=== PATIENT | female | born 1975 | race Caucasian/White ===

== ENCOUNTER → 2023-07-08 19:02 | Outpatient (REF) | payer BC, SELFPAY | LOC: WDC 19:02 | PROVIDERS: ATTENDING PHYSICIAN Nurse Practitioner | DX: Z12.31 Encounter for screening mammogram for malignant neoplasm of breast (principal) | CPT/HCPCS: 77063; 77067 ==

== ENCOUNTER → 2023-07-14 09:40 | Outpatient (REF) | payer BC, SELFPAY | LOC: WDC 09:40 | PROVIDERS: ATTENDING PHYSICIAN Nurse Practitioner | DX: R92.8 Other abnormal and inconclusive findings on diagnostic imaging of breast (principal) | CPT/HCPCS: 76642 ==

== ENCOUNTER → 2023-10-25 08:02 | Outpatient (REF) | payer BC, SELFPAY | LOC: RCS 08:02 | PROVIDERS: ATTENDING PHYSICIAN Nurse Practitioner | DX: R07.89 Other chest pain (principal) | CPT/HCPCS: 93017; 93350 ==

== ENCOUNTER → 2024-03-23 10:31 | Outpatient (REF) | payer BC, SELFPAY | LOC: HWRAD 10:31 | PROVIDERS: ATTENDING PHYSICIAN Nurse Practitioner Family; FAMILY PHYSICIAN Internal Medicine | DX: N93.9 Abnormal uterine and vaginal bleeding, unspecified (principal) | CPT/HCPCS: 76856 ==

== ENCOUNTER 2024-04-20 06:11 | Day surgery (SDC) | payer BC, SELFPAY ==
[2024-04-17 13:05] VITALS: BMI 26.6
[2024-04-20] VITALS (8 sets, daily range): BP systolic 119–133; BP diastolic 55–76; BMI 26.6
[2024-04-20] MEDS: TYLENOL 1000 MG PO (07:49)
[2024-04-20] MEDS: NORMOSOL-R/PLASMALYTE-A 1000 IV (08:05)
== END 2024-04-20 10:40 | disposition home or self-care (01) ==
LOC: SDS 06:11
PROVIDERS: ATTENDING PHYSICIAN Obstetrics & Gynecology; FAMILY PHYSICIAN Internal Medicine
DX: N92.0 Excessive and frequent menstruation with regular cycle (principal); E07.9 Disorder of thyroid, unspecified; E78.00 Pure hypercholesterolemia, unspecified; F41.9 Anxiety disorder, unspecified; F32.A Depression, unspecified; B00.1 Herpesviral vesicular dermatitis; G43.909 Migraine, unspecified, not intractable, without status migrainosus; Z88.0 Allergy status to penicillin
CPT/HCPCS: 58558; 88305; 36415; 93005

== ENCOUNTER 2024-07-04 06:04 | Day surgery (SDC) | payer BC, SELFPAY ==
[2024-06-29 11:32] LABS: % Basophils 0.9 % (0-2); % Eosinophils 2.2 % (0-6); % Lymphocytes 28.3 % (20.5-51.1); % Monocytes 8.6 % (1.7-9.3); Absolute Eosinophils 0.1 10^3/uL (0-0.7); Absolute Lymphocytes 1.3 10^3/uL (1.2-3.4); Absolute Monocytes 0.4 10^3/uL (0.1-0.6); Absolute Neutrophils 2.8 10^3/uL (1.4-6.5); Hematocrit 36.2 % (37.0-47.0); Hemoglobin 11.8 g/dL (12.0-16.0); Mean Corp Hgb Conc. 32.6 g/dL (33.0-37.0); Mean Corpuscular Hgb 28.8 pg (27.0-31.0); Mean Corpuscular Volume 88.3 fL (81.0-99.0); Mean Platelet Volume 10.1 fL (7.4-10.4); Nucleated Red Blood Cells % 0 %; Platelet Count 290 10^3/uL (130-400); Red Cell Dist. Width 15.8 % (11.5-14.5); White Blood Cell Count 4.6 10^3/uL (4.8-10.8)
[2024-06-29 12:29] LABS: ALT (SGPT) 13 U/L (0-35); AST (SGOT) 19 U/L (14-36); Albumin 4.2 g/dl (3.5-5.0); Alkaline Phosphatase 78 U/L (38-126); Blood Urea Nitrogen 16 mg/dl (7-17); Carbon Dioxide 26 mmol/L (22-30); Chloride 107 mmol/L (98-107); Glucose 84 mg/dl (70-99); Potassium 4.6 mmol/L (3.5-5.1); Sodium 142 mmol/L (135-145); Total Bilirubin 0.4 mg/dl (0.2-1.3); Total Protein 6.7 g/dl (6.3-8.2); eGFR > 60.00
[2024-06-29 12:43] LABS: Beta HCG Quantitative < 2.39 mIU/ml
[2024-06-29 12:44] VITALS: BMI 23.6
[2024-07-04] VITALS (16 sets, daily range): BP systolic 103–139; BP diastolic 47–85; BMI 23.6
[2024-07-04] MEDS: TYLENOL 1000 MG PO (06:27)
[2024-07-04] MEDS: NEURONTIN 300 MG PO (06:27)
[2024-07-04] MEDS: HEPARIN 5000 UNITS SC (06:29)
[2024-07-04] MEDS: NORMOSOL-R/PLASMALYTE-A 1000 IV (06:32)
--- NOTE | 2024-07-04 09:31 | W.IMMPOSTOP ---
Surgical Immed Post Op Note
-
Primary Surgeon: Miriam White DO
Pier Master: ROMMEL Greco
Pre-op Diagnosis: Menorrhagia, suspected adenomyosis
Post-op Diagnosis:same; endometriosis
Procedure Performed: RA TLH B/L salpingectomy, fulgeration endometriosis
Anesthesia Type: general ET Dr. Guzman
Specimen / Cultures: Uterus, cervix, bilateral fallopian tubes
Estimated Blood Loss: 5ml
Urine output: 200ml clear yellow urine
Complications: none
Operative Findings: Enlarged uterus approx 12 cm size, globular morphology suspicious for adenomyosis. Normal appearing tubes and ovaries b/l. superficial endometriosis implant noted on broad ligament on right side anterior surface inferior to
right fallopian tube.
Counts: correct times 2.
Stable to recovery.
[2024-07-04] MEDS: TORADOL 30 MG IV (09:51)
[2024-07-04] MEDS: DILAUDID 0.5 MG IV (10:44)
[2024-07-04] MEDS: DILAUDID 0.25 MG IV (11:09)
== END 2024-07-04 12:54 | disposition home or self-care (01) ==
LOC: SDS 06:04
PROVIDERS: ATTENDING PHYSICIAN Obstetrics & Gynecology; FAMILY PHYSICIAN Internal Medicine
DX: D25.9 Leiomyoma of uterus, unspecified (principal); N80.03 Adenomyosis of the uterus; N80.203 Endometriosis of bilateral fallopian tubes, unspecified depth; N94.6 Dysmenorrhea, unspecified; N92.0 Excessive and frequent menstruation with regular cycle
CPT/HCPCS: 58571; 88307; 36415; 80053; 84702; 85025; 86850; 86900; 86901; 88341; 88342; 93005

== ENCOUNTER 2024-07-14 12:52 | Emergency (ER) | payer BC, SELFPAY ==
[2024-07-14 12:57] VITALS: BP 132/66
[2024-07-14 13:13] LABS: % Immature Granulocytes 0.2 % (0-0.5); % Lymphocytes 18.4 % (20.5-51.1); % Monocytes 6.8 % (1.7-9.3); % Neutrophils 72.6 % (42.2-75.2); Absolute Basophils 0.1 10^3/uL (0-0.2); Absolute Eosinophils 0.1 10^3/uL (0-0.7); Absolute Lymphocytes 1.1 10^3/uL (1.2-3.4); Absolute Monocytes 0.4 10^3/uL (0.1-0.6); Absolute Neutrophils 4.5 10^3/uL (1.4-6.5); Mean Corp Hgb Conc. 33.3 g/dL (33.0-37.0); Mean Platelet Volume 8.8 fL (7.4-10.4); Nucleated Red Blood Cells % 0 %; Platelet Count 365 10^3/uL (130-400); Red Blood Cell Count 4.14 10^6/uL (4.20-5.40); Red Cell Dist. Width 14.2 % (11.5-14.5); White Blood Cell Count 6.2 10^3/uL (4.8-10.8)
[2024-07-14 13:27] LABS: ALT (SGPT) 17 U/L (0-35); AST (SGOT) 19 U/L (14-36); Albumin 4.7 g/dl (3.5-5.0); Alkaline Phosphatase 76 U/L (38-126); Blood Urea Nitrogen 11 mg/dl (7-17); Calcium 9.5 mg/dl (8.4-10.2); Carbon Dioxide 26 mmol/L (22-30); Chloride 104 mmol/L (98-107); Glucose 96 mg/dl (70-99); Lipase 38 U/L (23-300); Potassium 4.2 mmol/L (3.5-5.1); Sodium 140 mmol/L (135-145); Total Bilirubin 0.8 mg/dl (0.2-1.3); Total Protein 7.2 g/dl (6.3-8.2); eGFR > 60.00
[2024-07-14 14:09] VITALS: BMI 27.1
[2024-07-14 14:10] VITALS: BP 123/69
--- NOTE | 2024-07-14 14:16 | ED.GENMED ---
History of Present Illness
General
Chief Complaint: Abdominal Pain
Source: patient
Exam Limitations: none
Time Seen by Provider: 07/14/24 14:13
Nursing documentation reviewed up to this point in time: agreed with
History of Present Illness
History of Present Illness:
Patient is a 48-year-old female currently 9 days postop from robotic hysterectomy who presents to the emergency department for evaluation of left sided abdominal pain and loose stools. Patient reports abdominal pain over the past few days, worse
with movement. She also reports a few episodes of non-bloody diarrhea. Subjective fevers at home. No vomiting. No dysuria. No chest pain or shortness of breath.
Patient seen by [employer] earlier this morning and referred to emergency department for further evaluation/imaging given concern for intra-abdominal infection.
Patient states hysterectomy was uncomplicated. She has been recovering well at home. She has been taking 600 mg ibuprofen without improvement in symptoms.
She does have remote hx of kidney stones although states this pain feels different. No hx of abnormal colonoscopies
Past History
Past History
ED Past Medical History: Hypothyroidism
ED Past Surgical History: (12/05/12)
Social History
Tobacco: Non-smoker
Drug: None
Personal:
Living: with family
Employment: Employed (No history of subarachnoid hemorrhage)
Family History
Family History: Early CAD
Review of Systems
Review of Systems
Allergies reviewed?: Yes
All Other Systems: ROS reviewed and negative except as documented in HPI and ROS
Phy Exam
Physical Exam
Physical Exam:
Vitals: Patient's vital signs are stable. Afebrile
General: Patient is well appearing, no acute distress. Nontoxic appearing
Skin: Warm and dry, no rashes or lesions
Head: Normocephalic, atraumatic
Eyes: Sclera nonicteric.
Throat: Protecting airway
Neck: Normal ROM, no cervical spine tenderness, no meningismus
Cardiac: Regular rate and rhythm, no murmurs.
Pulm: Normal respiratory effort, no wheezes, rales, rhonchi heard on exam.
Abdomen: Well healing robotic incision sites without drainage or surrounding erythema or warmth. Abdomen soft w/ mild-mod tenderness in left mid abdomen/LLQ. No rebound tenderness of guarding. No CVA tenderness.
Extremities: No evidence of cyanosis or edema
Neuro: AAOx3. Grossly intact.
Psychiatric: Normal affect.
Course
Orders/Labs/Results
Orders:
Orders
07/14/24 13:05
Complete Blood Count/With Diff Urgent
Comprehensive Metabolic Panel Urgent
Lipase Urgent
07/14/24 14:26
0.9% Sodium Chloride 1000 ml [Nss] 1,000 ml IV BOLUS
Ketorolac [Toradol] 15 mg IV NOW STA
Ondansetron Injectable [Zofran] 4 mg IV NOW STA
07/14/24 14:28
Abdomen/Pelvis w Contrast CT [CT Abd/pelvis W Iv Cont] Urgent
Comment: recent hysterectomy
Reason For Exam: Left abdominal pain
07/14/24 15:36
Urinalysis Reflex To Culture Urgent
Date Specimen was Collected: 07/14/24
Time Specimen was Collected: 15:35
07/14/24 17:43
Amoxicillin 875 mg/Clav 125 mg [Augmentin 875 mg/125 mg] 1 tablet PO NOW STA
Abnormal Lab Results
07/14/24
13:05
RBC 4.14 L 10^6/uL
(4.20-5.40)
Hct 36.0 L %
(37.0-47.0)
Absolute Lymphs (auto) 1.1 L 10^3/uL
(1.2-3.4)
Lymphocytes % 18.4 L %
(20.5-51.1)
07/14/24 13:05
07/14/24 13:05
Vital Signs
Initial and Last Documented VS:
Initial Vital Signs
Temp Pulse Resp BP Pulse Ox
98.3 F 78 16 132/66 98
07/14/24 12:57 07/14/24 12:57 07/14/24 12:57 07/14/24 12:57 07/14/24 12:57
Last Documented Vital Signs
Temp Pulse Resp BP Pulse Ox
98.3 F 57 18 132/98 100
07/14/24 12:57 07/14/24 14:10 07/14/24 14:10 07/14/24 18:00 07/14/24 14:10
MDM/Problems Addressed
Differential Diagnosis Includes:
Not limited to: colitis, diverticulitis, intra-abdominal abscess, pyelonephritis, ureterolithiasis, etc
MDM/Problems Addressed:
48-year-old female with history as document w/ recent robotic hysterectomy presenting with left sided abdominal pain and loose stools over the past few days. Symptoms worse with movement. Subjective fevers at home. No vomiting or dysuria. Vitals
stable. Patient afebrile. Physical exam as above. Patient well appearing, in no apparent distress. She is nontoxic appearing. Patient has well healing surgical incisions without surrounding cellulitis. Abdomen soft with tenderness in left lower
quadrant. No rebound tenderness or guarding. Labs obtained in triage without clinically significant abnormalities. Given recent abdominal surgery � concern for postoperative complication vs colitis vs diverticulitis. Will check CT scan, give IV
fluids and Toradol. Will collect stool studies.
Update: Urine without evidence of infection. CT scan shows finding suggestive of colitis. No evidence of intra-abdominal abscess or other postoperative complication. This could be inflammtory colitis. Lower suspicion for acute diverticulitis.
However � given pain and history of possible fever at home will cover patient with Augmentin. She says she has had this medication in the past and had never had an allergic reaction. She would prefer this over Cipro/Flagyl. Patient unable to provide
stool sample today. Advised follow up with PCP for stool studies if symptoms persist. Patient overall well appearing and nontoxic. Her pain is well controlled after toradol. Do not feel IV abx or admission indicated. Discussed with [employer] on-call
who agrees with plan. Advised f/u with GI outpatient. Patient stable for discharge home. Return precautions discussed.
Chronic conditions affecting care:
N/A
Acute Exacerbation and/or Progression of Chronic Illness:
N/A
*Radiology
Radiology exam reviewed: radiology read reviewed
*Pulse Oximetry
Patient hypoxic: no
*EKG
Interpreted by ED Provider?: NA
*Assistant Professor Of Art Interpretation
Rate: Assistant Professor Of Art- N/A
*Critical Care Note
Total Time (30-74mins, 75-104mins- exclusive of procedures): Not Applicable
Patient Management
Discussion with other providers: Cable Assembler (Case discussed with [employer]-Dr. White)
Escalation/DeEscalation of care consider admission/obs:
Admit not indicated
ED Attending Note
-
Portions of this chart may have been created with voice recognition software.� Occasional wrong word or��sound alike� substitutions may have occurred due to the inherent limitations of voice recognition software.
Discharge Plan
Departure
Patient Disposition: Home (Routine Discharge)
Date of Disposition: 07/14/24
Time of Disposition: 17:44
Patient with high blood pressure during this ER visit?: No
Condition: Good
Covid-19: Not Applicable
Discharge Problem:
Colitis
Instructions: Clear Liquid Diet, Colitis - Discharge instructions, Abdominal pain in adults - ED discharge instructions
Prescriptions:
New
amoxicillin-pot clavulanate 875-125 mg tablet
1 tab PO BID 10 Days Qty: 20 0RF
No Action
rizatriptan 10 mg Tablet
10 mg PO Q2H PRN (Reason: migraines)
kvuwdqwwub-likksgutocwuu-jtmd [Fioricet] 50-325-40 mg Tablet
1 tab PO Q4H PRN (Reason: migraines)
lorazepam 0.5 mg Tablet
0.5 mg PO BID PRN (Reason: anxiety)
ibuprofen 200 mg Tablet
600 mg PO Q6H PRN (Reason: pain)
tranexamic acid [Lysteda] 650 mg Tablet
1,300 mg PO TID PRN (Reason: heavy menstral cycles)
Rx Instructions:
for up to 5 days for heavy menstral cycles
ferrous sulfate [Iron (ferrous sulfate)] 325 mg (65 mg iron) Tablet
325 mg PO .3 TIMES/WEEK
oxycodone 5 mg tablet
5 mg PO Q6H PRN (Reason: severe pain) Qty: 12 0RF
Rx Instructions:
Half tab or 1 tab PO Q 6hr prn severe pain
Referrals:
Marlon Dominguez MD [Active] - Call in 1-3 days for appt
Miriam White DO [Active] - Keep scheduled appt
Kimberlee Bernal MD [Family Provider] -
Activity Restrictions/Additional Instructions:
RETURN TO THE EMERGENCY DEPARTMENT WITH FEVERS, CHILLS, PERSISTENT/WORSENING ABDOMINAL PAIN, INTRACTABLE DIARRHEA OR SIGNS SEVERE DEHYDRATION, OR ANY OTHER CONCERNS
- As discussed�your CT scan showed findings of a colitis today. You were unable to give a stool sample in the emergency department. If diarrhea persist�you should follow-up with primary care to obtain stool samples.
- A prescription for antibiotic has been sent to your pharmacy. You should take this twice a day for the next 10 days. If you develop any signs of reaction please stop medication immediately.
- I would recommend a clear liquid diet over the next few days and advance to low fiber. You can take Tylenol and/or Motrin as needed for pain. Stay well-hydrated.
- Follow-up with GI for further evaluation/management as this may require further testing.
Monitor your symptoms closely and return to the emergency department with any acute worsening/new symptoms or any other concerns
Interventions
Interventions:
*Risk Screen - Suicide Last Done: 07/14/24 12:57
*General Assessment Last Done: 07/14/24 14:05
*Neglect/Abuse Screening Last Done: 07/14/24 12:57
*ED- Fall Risk Assessment Last Done: 07/14/24 14:05
*ED COVID-19 Vaccine History Last Done: 07/14/24 14:05
*Nursing Disposition Last Done: 07/14/24 18:21
TL-Qtbrcw-Yufultrqyh Assessment Last Done: 07/14/24 14:05
ED-Skin Assessment Last Done: 07/14/24 14:05
Discharge Date and Time
Discharge Date/Time: 07/14/24 18:22
Print Language: KOREAN
[2024-07-14] MEDS: NSS 1000 IV (14:33)
[2024-07-14] MEDS: ZOFRAN 4 MG IV (14:38)
[2024-07-14] MEDS: TORADOL 15 MG IV (14:38)
[2024-07-14 15:00] VITALS: BP 119/49
[2024-07-14 15:44] LABS: Urine Albumin Negative (Neg - Trace); Urine Bilirubin Negative (Negative); Urine Character Clear (Clear); Urine Color Yellow; Urine Glucose Negative (Negative); Urine Ketone Negative (Negative); Urine Leukocyte Negative (Negative); Urine Nitrite Negative (Negative); Urine Occult Blood Negative (Negative); Urine Specific Gravity 1.015 (<1.030); Urine Urobilinogen Negative (Neg - 1+)
[2024-07-14 17:05] VITALS: BP 120/59
[2024-07-14 18:00] VITALS: BP 132/98
[2024-07-14] MEDS: AUGMENTIN 875 MG/125 MG 1 TABLET PO (18:15)
== END 2024-07-14 18:22 | disposition home or self-care (01) ==
LOC: EMR 12:52
PROVIDERS: Emergency Medicine; Physician Assistant; EMERGENCY PHYSICIAN Student in an Organized Health Care Education/Training Program; FAMILY PHYSICIAN Internal Medicine; REFERRING PHYSICIAN Obstetrics & Gynecology
DX: K52.9 Noninfective gastroenteritis and colitis, unspecified (principal); E03.9 Hypothyroidism, unspecified; Z82.49 Family history of ischemic heart disease and other diseases of the circulatory system; Z87.442 Personal history of urinary calculi; Z90.710 Acquired absence of both cervix and uterus
CPT/HCPCS: 99284; 96374; 96375; 96361; 74177; 80053; 81003; 83690; 85025; Q9967

== ENCOUNTER → 2024-10-03 18:13 | Outpatient (REF) | payer BC, SELFPAY | LOC: WDC 18:13 | PROVIDERS: ATTENDING PHYSICIAN Nurse Practitioner | DX: Z12.31 Encounter for screening mammogram for malignant neoplasm of breast (principal) | CPT/HCPCS: 77063; 77067 ==